=== PATIENT | male | born 1985 | race Caucasian/White ===

== ENCOUNTER 2022-08-04 14:06 | Emergency (ER) | payer OTHER ==
[2022-08-04 15:45] VITALS: BP 136/80
[2022-08-04] MEDS ORDERED: IBUPROFEN 400MG TABLET PO ONE (15:45)
[2022-08-04] MEDS ORDERED: ACETAMINOPHEN 325MG TABLET PO ONE (15:45)
[2022-08-04] MEDS ORDERED: IBUP-2028 MT (16:30)
== END 2022-08-04 17:01 ==
LOC: ER 14:06
DX: M79.10 Myalgia, unspecified site (principal); R07.81 Pleurodynia
CPT/HCPCS: 71045; 99283